=== PATIENT | male | born 1980 | race Caucasian/White ===

== ENCOUNTER 2018-04-13 20:27 | Emergency (ER) | payer SELFPAY ==
[~2018-04-13] VITALS: Ht 182.9 cm; Wt 77.1 kg
[2018-04-13 21:05] VITALS: BP 133/81
--- NOTE | 2018-04-13 21:27 | PHYS DOC ---
Past Medical History Past Medical History: No Pertinent History (ANNALEE MAC APRN) Past Surgical History: No Surgical History (ANNALEE MAC APRN) Alcohol Use: Occasionally Drug Use: None (ANNALEE MAC APRN) Adult General Chief Complaint Chief Complaint: FINGER INJURY HPI HPI Patient is a 37 year old male who presents with symptoms right middle finger in the truck door one week ago. Nail is intact and there is no bleeding or hemorrhage under the nail. There is no laceration. There is 2+ swelling. Patient rates his pain 8 out of 10 from the pressure that is built up under the nail and in the tip of the finger. (ANNALEE MAC APRN) Review of Systems Review of Systems Constitutional: Denies fever or chills [] Eyes: Denies change in visual acuity, redness, or eye pain [] HENT: Denies nasal congestion or sore throat [] Respiratory: Denies cough or shortness of breath [] Cardiovascular: No additional information not addressed in HPI [] GI: Denies abdominal pain, nausea, vomiting, bloody stools or diarrhea [] : Denies dysuria or hematuria [] Musculoskeletal: Right middle finger swelling and pain. Denies back pain or joint pain [] Integument: Denies rash or skin lesions [] Neurologic: Denies headache, focal weakness or sensory changes [] All other systems were reviewed and found to be within normal limits, except as documented in this note. (ANNALEE MAC APRN) Current Medications Current Medications Current Medications Medications (Trade) Dose Ordered Sig/Cora Start Time Stop Time Status Last Admin Dose Admin Bacitracin 3 arti 1X ONCE 04/13/18 22:45 04/13/18 22:46 DC 04/13/18 22:40 3 ARTI Diphtheria/ Tetanus/Acell Pertussis (Boostrix) 0.5 ml ONCE ONCE 04/13/18 21:30 04/13/18 21:31 DC 04/13/18 21:25 0.5 ML Lidocaine HCl 20 ml 1X ONCE 04/13/18 22:15 04/13/18 22:16 DC 04/13/18 22:15 20 ML Neomycin/ Polymyxin/ Bacitracin (Triple Antibiotic Ointment) 1 pkt STK-MED ONCE 04/13/18 22:30 04/13/18 22:32 DC (SHERITA HENDRIX DO) Allergies Allergies Allergies Coded Allergies Type Severity Reaction Last Updated Verified No Known Drug Allergies 05/09/14 No (SHERITA HENDRIX DO) Physical Exam Physical Exam Constitutional: Well developed, well nourished, no acute distress, non-toxic appearance. [] HENT: Normocephalic, atraumatic, bilateral external ears normal, oropharynx moist, no oral exudates, nose normal. [] Eyes: PERRLA, EOMI, conjunctiva normal, no discharge. [] Neck: Normal range of motion, no tenderness, supple, no stridor. [] Cardiovascular:Heart rate regular rhythm, no murmur [] Lungs & Thorax: Bilateral breath sounds clear to auscultation [] Abdomen: Bowel sounds normal, soft, no tenderness, no masses, no pulsatile masses. [] Skin: Warm, dry, no erythema, no rash. [] Back: No tenderness, no CVA tenderness. [] Extremities: Right middle finger tenderness, no cyanosis, no clubbing, ROM intact, right middle finger 2-3+ edema. [] Neurologic: Alert and oriented X 3, normal motor function, normal sensory function, no focal deficits noted. [] Psychologic: Affect normal, judgement normal, mood normal. [] (ANNALEE MAC APRN) Current Patient Data Vital Signs Vital Signs Date Time Temp Pulse Resp B/P (MAP) Pulse Ox O2 Delivery O2 Flow Rate FiO2 04/13/18 21:05 98.2 78 16 133/81 (98) 98 Room Air 98.2 (SHERITA HENDRIX DO) EKG EKG [] (ANNALEE MAC APRN) Radiology/Procedures Radiology/Procedures Right hand (ANNALEE MAC APRN) Course & Med Decision Making Course & Med Decision Making Patient is a 37 year old male who presents with symptoms right middle finger in the truck door one week ago. Nail is intact and there is no bleeding or hemorrhage under the nail. There is no laceration. There is 2+ swelling. Patient rates his pain 8 out of 10 from the pressure that is built up under the nail and in the tip of the finger. Alert and oriented. Afebrile. Patient can't remember the last time he received a tetanus shot, so he will receive a tetanus shot today. Tip of right middle finger is 2-3+ swelling and heart for patient to in because of the swelling and pain. Patient states there is a lot of pressure built up underneath it. Looks to be a infection such as paronychia. Procedure: Right middle finger 3 holes burned in nail for drainage 2 small incisions placed in cutical for drainage Cleaned with Chlorhexidine Splinted, bacitracin ointment placed, dressed with clean dressing. Patient should return in 48 hours for a wound check. (ANNALEE MAC APRN) Dragon Disclaimer Dragon Disclaimer This electronic medical record was generated, in whole or in part, using a voice recognition dictation system. (ANNALEE MAC APRN) Splinting Splinting : Location: R middle finger Pre-Made Type: metal (finger splint) Pre-Proc Neuro Vasc Exam: normal Post-Proc Neuro Vasc Exam: normal, unchanged from pre-exam (SHERITA HENDRIX DO) Departure Departure Impression: Primary Impression: Paronychia of finger Disposition: 01 HOME, SELF-CARE Condition: STABLE Referrals: NO PCP (PCP) Patient Instructions: Paronychia Additional Instructions: Return in 48 hours for wound check. Take medications as prescribed. Scripts Clindamycin Hcl (CLINDAMYCIN HCL) 300 Mg Capsule 1 CAP PO TID, #30 CAP Prov: ANNALEE MAC APRN 04/13/18 Hydrocodone/Apap 5-325 (NORCO 5-325 TABLET) 1 Each Tablet 1 TAB PO PRN Q6HRS PRN for PAIN, #15 TAB 0 Refills Prov: ANNALEE MAC APRN 04/13/18 Attending Signature Attending Signature I have reviewed the PA/STOCK SPECULATOR's note and plan of care. I was available for consultation as needed during the patient's visit in the emergency department. I agree with the clinical impression, plan, and disposition. (SHERITA HENDRIX DO) Problem Qualifiers Primary Impression: Paronychia of finger Laterality: right Qualified Codes: L03.011 - Cellulitis of right finger ANNALEE MAC APRN Apr 13, 2018 21:27 SHERITA HENDRIX DO Apr 18, 2018 12:02
[2018-04-13] MEDS ORDERED: DIPHTH,PERTUSS(ACELL),TET TOX 0.5 ML DISP.SYRIN. VAX IM ONE (21:30)
[2018-04-13] MEDS ORDERED: LIDOCAINE 2% 20 ML VIAL. IJ ONE (22:15)
[2018-04-13] MEDS ORDERED: NEOMY/BACITR/POLYMYXIN OINT PACKET. TP ONE ×2 (22:29→22:30)
[2018-04-13] MEDS ORDERED: HYDR-3164 PO (22:31)
[2018-04-13] MEDS ORDERED: CIPR500T94 PO (22:31)
[2018-04-13] MEDS ORDERED: CLIN300C8 PO (22:35)
[2018-04-13] MEDS ORDERED: BACITRACIN TOPICAL OINT 14GM TUBE. TP ONE (22:45)
--- NOTE | 2018-04-14 02:54 | RAD ---
Right hand x-rays 3 views HISTORY: Middle finger crush injury. FINDINGS: No fracture or dislocation of the right hand including the distal third digit. Soft tissues unremarkable. IMPRESSION: No acute osseous injury. Electronically signed by: Fabiano Hernadez MD (04/14/2018 2:49 AM) [facility] [place]
== END 2018-04-13 22:45 | disposition home or self-care (01) ==
LOC: ER 20:27
DX: L03.011 Cellulitis of right finger (principal)
CPT/HCPCS: 10060; 73130; 90471; 90715; 99283; J2001

== ENCOUNTER 2018-09-21 10:36 | Emergency (ER) | payer SELFPAY ==
[~2018-09-21] VITALS: Ht 190.5 cm; Wt 77.1 kg
[~2018-09-21 10:36] MED LIST: CIPR500T94 PO; CLIN300C8 PO; HYDR-3164 PO
[2018-09-21 10:39] VITALS: BP 118/71
[2018-09-21] MEDS ORDERED: CEPH-264 PO (10:53)
[2018-09-21] MEDS ORDERED: HYDR-3164 PO (10:53)
--- NOTE | 2018-09-21 10:53 | PHYS DOC ---
Past Medical History Past Medical History: No Pertinent History Past Surgical History: No Surgical History Alcohol Use: Occasionally Drug Use: None Adult General Chief Complaint Chief Complaint: ABSCESS HPI HPI Patient is a 38 year old male who presents with 2 days of quarter sized abscess to right buttock that drained yesterday. Rates sharp burning pain at 10/10. Review of Systems Review of Systems Constitutional: Denies fever or chills [] Eyes: Denies change in visual acuity, redness, or eye pain [] HENT: Denies nasal congestion or sore throat [] Respiratory: Denies cough or shortness of breath [] Cardiovascular: No additional information not addressed in HPI [] GI: Denies abdominal pain, nausea, vomiting, bloody stools or diarrhea [] : Denies dysuria or hematuria [] Musculoskeletal: Denies back pain or joint pain [] Integument: Right buttock Denies rash or skin lesions [] Neurologic: Denies headache, focal weakness or sensory changes [] Endocrine: Denies polyuria or polydipsia [] All other systems were reviewed and found to be within normal limits, except as documented in this note. Allergies Allergies Allergies Coded Allergies Type Severity Reaction Last Updated Verified No Known Drug Allergies 05/09/14 No Physical Exam Physical Exam Constitutional: Well developed, well nourished, no acute distress, non-toxic appearance. [] HENT: Normocephalic, atraumatic, bilateral external ears normal, oropharynx moist, no oral exudates, nose normal. [] Eyes: PERRLA, EOMI, conjunctiva normal, no discharge. [] Neck: Normal range of motion, no tenderness, supple, no stridor. [] Cardiovascular:Heart rate regular rhythm, no murmur [] Lungs & Thorax: Bilateral breath sounds clear to auscultation [] Abdomen: Bowel sounds normal, soft, no tenderness, no masses, no pulsatile masses. [] Skin: Warm, dry, erythema right buttock abscess that is quarter sized and nonfluctuant. No drainage from abscess., no rash. [] Back: No tenderness, no CVA tenderness. [] Extremities: No tenderness, no cyanosis, no clubbing, ROM intact, no edema. [] Neurologic: Alert and oriented X 3, normal motor function, normal sensory function, no focal deficits noted. [] Psychologic: Affect normal, judgement normal, mood normal. [] EKG EKG [] Radiology/Procedures Radiology/Procedures [] Course & Med Decision Making Course & Med Decision Making Patient is a 38 year old male who presents with 2 days of quarter sized abscess to right buttock that drained yesterday. Rates sharp burning pain at 10/10. Denies fevers, nausea, vomiting, headache, chills. Patient states he's been squeezing on the abscess and drained some fluid from it yesterday but is more painful. There is a quarter-sized abscess that is red with a white head, nondraining and is hard and non-fluctuant. Afebrile. Patient is told to try using a warm pack to the area to help it drain and not to squeeze the abscess. Patient is given Keflex antibiotic and [place]. Patient told to come back in 48 hours for a wound recheck. Dragon Disclaimer Dragon Disclaimer This electronic medical record was generated, in whole or in part, using a voice recognition dictation system. Departure Departure Impression: Primary Impression: Abscess Disposition: 01 HOME, SELF-CARE Condition: STABLE Referrals: NO PCP (PCP) Patient Instructions: Abscess Additional Instructions: Return to the ED in 48 hours for a wound recheck. Use heating pad to area to help it drain. Use medication as prescribed. Scripts Hydrocodone/Apap 5-325 (NORCO 5-325 TABLET) 1 Each Tablet 1 TAB PO PRN Q6HRS PRN for PAIN, #10 TAB 0 Refills Prov: ANNALEE MAC APRN 09/21/18 Cephalexin (KEFLEX) 500 Mg Capsule 1 CAP PO TID, #21 CAP Prov: ANNALEE MAC SHADE CLASSIFIER 09/21/18 ANNALEE MAC SHADE CLASSIFIER Sep 21, 2018 10:53
== END 2018-09-21 11:16 | disposition home or self-care (01) ==
LOC: ER 10:36
DX: L02.31 Cutaneous abscess of buttock (principal)
CPT/HCPCS: 99283

== ENCOUNTER 2018-09-24 17:42 | Emergency (ER) | payer SELFPAY ==
[~2018-09-24] VITALS: Ht 185.4 cm; Wt 77.1 kg
[~2018-09-24 17:42] MED LIST changes: +CEPH-264 PO
[2018-09-24 17:54] VITALS: BP 112/69
[2018-09-24] MEDS: LIDOCAINE 1%/EPI 1:100,000 20 ML VIAL. SQ ONE ×2 (19:00→19:15)
[2018-09-24] MEDS ORDERED: CLIN150C14 PO (19:13)
--- NOTE | 2018-09-24 19:13 | PHYS DOC ---
Past Medical History Past Medical History: No Pertinent History Past Surgical History: No Surgical History Additional Information: 0.5 PPD Alcohol Use: Occasionally Drug Use: None Adult General Chief Complaint Chief Complaint: ABSCESS HPI HPI Patient is a 38 year old male who presents to the emergency Department today with complaints of continued abscess to his right buttock. Patient states he was seen here 2 days ago and prescribed Keflex and hydrocodone treatment of the abscess. He was unable to pecan picker her medications due to inability to afford medications. He denies any fever, drainage, nausea, vomiting, diarrhea, or rash. He rates his pain a 10 out of 10 on the pain scale, there are no alleviating factors, patient states pain increases if area is touched. Review of Systems Review of Systems Constitutional: Denies fever or chills [] Eyes: redness, or eye pain [] HENT: Denies nasal congestion or sore throat [] GI: Denies abdominal pain, nausea, vomiting, or diarrhea [] Musculoskeletal: Denies back pain or joint pain [] Integument: see history of present illness Neurologic: Denies headache, focal weakness or sensory changes [] Current Medications Current Medications Current Medications Medications (Trade) Dose Ordered Sig/Cora Start Time Stop Time Status Last Admin Dose Admin Lidocaine/ Epinephrine (LIDOCAINE 1%-EPI 1:100,000 Multi-Dose) 20 ml 1X ONCE 09/24/18 19:00 09/24/18 19:01 DC Allergies Allergies Allergies Coded Allergies Type Severity Reaction Last Updated Verified No Known Drug Allergies 05/09/14 No Physical Exam Physical Exam Constitutional: Well developed, well nourished, no acute distress, non-toxic appearance, agitated. [] HENT: Normocephalic, atraumatic, bilateral external ears normal, nose normal. [] Eyes: conjunctiva normal, no discharge. [] Neck: Normal range of motion, no stridor. [] Lungs & Thorax: Respirations even and unlabored, no retractions, no respiratory distress Skin: Warm, dry; 10 cm diameter round, tender, indurated, warm, erythematous area noted to central right buttock with centralized pustule, minimal fluctuance. Extremities: No cyanosis, ROM intact, Neurologic: Alert and oriented X 3, normal motor function, normal sensory function, no focal deficits noted. [] Psychologic: Affect normal, judgement normal, mood normal. [] Current Patient Data Vital Signs Vital Signs Date Time Temp Pulse Resp B/P (MAP) Pulse Ox O2 Delivery O2 Flow Rate FiO2 09/24/18 17:54 98.6 86 22 112/69 (83) 97 Room Air 98.6 EKG EKG [] Radiology/Procedures Radiology/Procedures [] Course & Med Decision Making Course & Med Decision Making Pertinent Labs and Imaging studies reviewed. (See chart for details) dx: Abscess of right buttocks Pt refuses incision and drainage of abscess Prescription written for clindamycin, 450 mg by mouth 3 times a day 10 days. Patient was given a good Rx discount prescription card. Tylenol or ibuprofen as needed for pain. Return to the ER symptoms worsen. Patient verbalized an understanding of home care, medications, follow-up, and return to ED instructions and was in agreement with the plan of care. [] Dragon Disclaimer Dragon Disclaimer This electronic medical record was generated, in whole or in part, using a voice recognition dictation system. Departure Departure Impression: Primary Impression: Abscess Disposition: 01 HOME, SELF-CARE Condition: STABLE Referrals: NO PCP (PCP) Patient Instructions: Abscess, [id number] Additional Instructions: fill prescription and use as directed. Apply warm moist packs to area several times daily. Tylenol or ibuprofen as needed for pain. Follow up with your doctor or return to ER for wound recheck in 2 days. Scripts Clindamycin Hcl (CLINDAMYCIN HCL) 150 Mg Capsule 450 MG PO TID for 10 Days, #90 CAP Prov: BRANDY SHINE APRN 09/24/18 BRANDY SHINE [employer] Sep 24, 2018 19:13
== END 2018-09-24 19:15 | disposition home or self-care (01) ==
LOC: ER 17:42
DX: L02.31 Cutaneous abscess of buttock (principal); F17.200 Nicotine dependence, unspecified, uncomplicated
CPT/HCPCS: 99283; J3490